=== PATIENT | male | born 1995 | race Caucasian/White ===

== ENCOUNTER 2018-07-09 05:48 | Day surgery (SDC) | payer OTHER ==
[~2018-07-09] VITALS: Ht 177.8 cm; Wt 81.6 kg
--- NOTE | ~2018-07-09 | O ---
[address] [address] OPERATIVE REPORT Name: ARIANNA MUSA Room #: 150[address] [place] [address]..#: [id number] Admission: 07/09/18 Attend Phys: Hardik Rae MD Discharge: Date of : 89 Report #: [id number] THIS REPORT FOR: //name// CC: [facility] physician/PCP Hardik Rae DATE OF SERVICE: 07/09/2018 SERVICE: Orthopedics. FACILITY: [facility]. SURGEON: Hardik Rae MD MUSIC EXECUTIVE: Paulina Mir NP INDICATION FOR MUSIC EXECUTIVE: Extremity positioning, suture management and assistance with the repair. PREOPERATIVE DIAGNOSES: 1. Left hip pain. 2. Left hip combined type femoroacetabular impingement. 3. Left hip labral tear. POSTOPERATIVE DIAGNOSES: 1. Left hip pain. 2. Left hip combined type femoroacetabular impingement. 3. Left hip labral tear. 4. Additional left hip chondromalacia. PROCEDURE: 1. Left hip arthroscopic labral repair. 2. Left hip arthroscopic subspine acetabuloplasty and focal anterior rim acetabuloplasty. 3. Left hip arthroscopic Cam osteochondroplasty. 4. Left hip arthroscopic chondroplasty with microfracture. COMPLICATIONS: None. DRAINS: None. SPECIMENS: None. ANESTHESIA TYPE: General with regional. FINDINGS: [address] [address] OPERATIVE REPORT Name: ARIANNA MUSA Room #: 150-11 [facility] Sabi#: [id number] Admission: 07/09/18 Attend Phys: Hardik Rae MD Discharge: Date of : 89 Report #: [id number] 1. Area of grade 4 chondromalacia measuring approximately 10 mm x 8 mm in size at the superior dome at the chondral labral junction. This was a detached tear secondary to the Cam impingement and was treated with chondroplasty and then microfracture. 2. Acetabular repair with Tekoa CinchLock suture anchor x 4. 3. Prominent subspine region from the anterior column of the acetabulum secondary to the anterior inferior iliac spine treated with an extraarticular subspine acetabuloplasty. In addition, there was anterior focal over coverage, which was treated with a partial rim resection at that anterior location. HISTORY AND INDICATIONS: The patient is a 23-year-old gentleman with a history of persistent progressive left hip pain for well over 6 months that had failed conservative measures extensively. He had had worsening symptoms that were impacting daily activities including work and sitting with ADLs. He eventually elected to undergo surgical treatment after imaging was obtained and treatment options were discussed with him. 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 The MRI showed a labral tear and a question of chondromalacia, which was confirmed intraoperatively. PROCEDURE IN DETAIL: After the left lower extremity was correctly identified in the preoperative holding as the operative extremity, the patient underwent placement of a single shot regional nerve block. He was then taken to the operating room where general anesthesia was induced without complication. He was padded appropriately. Prophylactic antibiotics were administered appropriately. Left leg was evaluated under fluoroscopy to map out the femoral head and neck junction where he had a large Cam deformity with a maximum alpha angle of approximately 78 degrees, which went up proximally and laterally as well over the top and was located at the -15 degree position to the 80 degree position anteriorly. The left hip was then prepped and draped in standard sterile fashion. Timeout procedure performed. Traction was applied to the left lower extremity and a standard anterolateral viewing portal was established followed by mid anterior working portal. There was noted to be a significant amount of synovitis and erythema of the capsule. This is considered indication for CPM use postoperatively to minimize adhesions and scarring. After a transverse capsulotomy was performed, shaver was used to debride the synovitis. There was a detached articular cartilage noted immediately upon placing the scope into the hip, which was secondary to the Cam impingement. This was later treated with a chondroplasty. The labrum was significantly frayed and damaged as well. Anterolaterally access to the hip could be achieved without difficulty. However, anteromedially there was a large lip of bone from the anterior over coverage and so the labrum was dissected free from this anterior over coverage portion of the acetabulum and the bur was used to perform a rim acetabuloplasty in this area recessing the rim approximately 4 mm. In addition, there was extraarticular impingement from the acetabular subspine region, which was treated with the subspine recession as well with the bur after the capsule [address] [address] OPERATIVE REPORT Name: ARIANNA MUSA Room #: 150-11 [facility] M.Ana#: [id number] Admission: 07/09/18 Attend Phys: Hardik Rae MD Discharge: Date of : 97 Report #: [id number] had been reflected off the dorsal side of the labrum. The articular cartilage in the most anterior portion of the acetabuloplasty at the rim was incorporated with the labral repair to reinforce it. The first anchor was placed centrally. A second anchor was placed more laterally. We did have one anchor suture fail and placed an additional one adjacent to it in this area and then similarly worked additional anchors laterally and medially first with the second anchor placed more medially, the third anchor placed more laterally and then there was an additional area between the first and second where a fourth anchor was placed, which provided good compression of the labrum against the acetabular rim. At this point, the cartilage was addressed. While the hip was still under traction, we addressed the articular cartilage pathology and this is responsible for the added traction time compared to normal. The loose articular cartilage was debrided with a biter as well as a ring curette and the final perimeter was stable compared to the detached portion of the cartilage that was encountered initially. The chondroplasty was completed and then a Examifyx device was used for microfracture at the rim. At this point, traction was then let down. The hip was flexed slightly because this was a high lateral Cam deformity. The transverse capsulotomy was extended down the femoral neck in a T shape and then the Cam osteoplasty was performed in a typical fashion. On two occasions, I removed the instruments from the hip, brought C-arm in to assess the extent of the resection, identified some additional bone that needed to be resected more proximally and over the top and then brought the hip into less degrees of flexion until it was in neutral flexion and extension and completed the Cam osteoplasty. Care was taken to preserve the synovial reflection and the vascular supply to the femoral head. After the Cam osteoplasty was confirmed to be adequately completed on the intraoperative fluoroscopy, instruments were placed back into the hip. The bony debris was lavaged out of the hip and then the T-shaped capsulotomy was closed with a total of five #2 Vicryl sutures. Instruments were removed. The portal sites were closed. Sterile dressing was applied. The patient was awakened from anesthesia and taken to the recovery room in stable condition. There were no complications. All counts were recorded as correct. Postoperative protocol will be touchdown for flat weightbearing for 2-3 weeks working off the crutches at that point. Based on the location and nature of the articular cartilage, injury and microfracture, we will proceed with weightbearing and working off crutches at the 2-3 week point. <ELECTRONICALLY SIGNED> By: Hardik Rae MD 07/09/18 1310 [id number] Hardik Rae MD /nt
[2018-07-09 06:36] VITALS: BP 138/69
== END 2018-07-09 12:40 | disposition home or self-care (01) ==
LOC: OR 05:48 → TBA 05:48 → OR 07:59
DX: S73.102A Unspecified sprain of left hip, initial encounter (principal); M25.852 Other specified joint disorders, left hip; M94.252 Chondromalacia, left hip; X58.XXXA Exposure to other specified factors, initial encounter; Y93.89 Activity, other specified; Y92.89 Other specified places as the place of occurrence of the external cause; Y99.8 Other external cause status; Z98.890 Other specified postprocedural states
CPT/HCPCS: 50010; 50101; 50386; 51538; 55430; 56524; 56527; 57092; 57103; 62110; 62900; 70005